=== PATIENT | female | born 1975 | race Caucasian/White ===

== ENCOUNTER 2018-10-15 19:32 | Inpatient (IN) | payer BC, OTHER ==
[~2018-10-15] VITALS: Ht 162.6 cm; Wt 105.0 kg
[2018-10-15] MEDS ORDERED: SODIUM CHLORIDE 0.9% 1,000 ML IV ONE (20:07)
[2018-10-15 20:28] LABS: BASOPHILS # (AUTO) 0.01 x10^3/uL (0-0.1); BASOPHILS % (AUTO) 0 % (0-1); EOSINOPHILS # (AUTO) 0.08 x10^3/uL (0-0.4); EOSINOPHILS % (AUTO) 1 % (1-7); LYMPHOCYTES # (AUTO) 1.66 x10^3/uL (1-3.4); LYMPHOCYTES % (AUTO) 12 % (22-44); MD NO; MEAN CORPUSCULAR HEMOGLOBIN 32.4 pg (27.0-34.8); MEAN CORPUSCULAR VOLUME 95.3 fL (80-100); MEAN PLATELET VOLUME 9.4 fL (7.4-10.4); MONOCYTES # (AUTO) 0.64 x10^3/uL (0.2-0.8); MONOCYTES % (AUTO) 5 % (2-9); NEUTROPHILS # (AUTO) 11.25 x10^3/uL (1.8-6.8); NEUTROPHILS % (AUTO) 83 % (42-75); PLATELET COUNT 179 x10^3/uL (130-400); RED BLOOD COUNT 4.59 x10^6/uL (3.82-5.3); RED CELL DISTRIBUTION WIDTH 13.1 % (9.6-15.2)
[2018-10-15] MEDS ORDERED: MORPHINE SULFATE 4 MG/ML, 1ML IVPush PRN (20:30)
[2018-10-15] MEDS ORDERED: PLEASE ENTER ALLERGIES MC SCH (20:30)
[2018-10-15] MEDS ORDERED: SODIUM CHLORIDE FLUSH 10ML SYR IVF ONE (20:30)
[2018-10-15] MEDS ORDERED: PLEASE ENTER HEIGHT AND WEIGHT MC SCH (20:30)
[2018-10-15 20:40] LABS: ALBUMIN 3.2 g/dL (3.4-5.0); ANION GAP 6 mmol/L (5-15); CALCIUM 9.1 mg/dL (8.5-10.1); CHLORIDE 106 mmol/L (98-107); CREATININE 0.72 mg/dL (0.55-1.02)
[2018-10-15 20:42] LABS: INTERNATIONAL NORMALIZED RATIO 0.96 (0.93-1.1); PROTHROMBIN TIME 10.1 Seconds (9.6-11.5)
--- NOTE | 2018-10-15 21:43 | NUR ---
REPORT GIVEN TO EUGENIO SAEZ.
[2018-10-15 22:26] VITALS: BP 117/81
[2018-10-15] MEDS ORDERED: GABAPENTIN 300 MG CAPSULE PO ONE ×2 (22:30→23:30)
[2018-10-15] MEDS: HYDROmorphone 2 MG/ML, 1ML IVPush PRN (23:00)
[2018-10-15] MEDS ORDERED: POLYETHYLENE GLYCOL 17 GM PACKET PO PRN (23:00)
[2018-10-15] MEDS ORDERED: BISACODYL 10 MG SUPP PR PRN (23:00)
[2018-10-15] MEDS ORDERED: DIAZEPAM 5 MG TABLET PO ONE (23:00)
[2018-10-15] MEDS: GABAPENTIN 300 MG CAPSULE PO SCH (23:00)
[2018-10-15] MEDS ORDERED: OXYcodone IR 5MG TABLET PO PRN (23:00)
[2018-10-15] MEDS ORDERED: LABETALOL 5MG/ML, 20ML IVPush PRN (23:00)
[2018-10-15] MEDS: LACTATED RINGERS 1,000 ML IV SCH (23:37)
[2018-10-15] MEDS: OxyconTIN ER 10 MG TAB.ER PO SCH (23:37)
[2018-10-16] MEDS ORDERED: HYDROmorphone 2 MG/ML, 1ML IVPush PRN (01:00)
[2018-10-16 04:04] VITALS: BP 91/62
[2018-10-16 05:07] LABS: BASOPHILS # (AUTO) 0.11 x10^3/uL (0-0.1); BASOPHILS % (AUTO) 1 % (0-1); EOSINOPHILS # (AUTO) 0.21 x10^3/uL (0-0.4); EOSINOPHILS % (AUTO) 2 % (1-7); LYMPHOCYTES % (AUTO) 19 % (22-44); MD NO; MEAN CORPUSCULAR HEMOGLOBIN 32.2 pg (27.0-34.8); MEAN CORPUSCULAR HGB CONC 33.6 g/dL (32.4-35.8); MEAN CORPUSCULAR VOLUME 95.9 fL (80-100); MEAN PLATELET VOLUME 9.6 fL (7.4-10.4); MONOCYTES # (AUTO) 0.73 x10^3/uL (0.2-0.8); MONOCYTES % (AUTO) 6 % (2-9); NEUTROPHILS # (AUTO) 9.17 x10^3/uL (1.8-6.8); NEUTROPHILS % (AUTO) 73 % (42-75); PLATELET COUNT 156 x10^3/uL (130-400); RED BLOOD COUNT 4.44 x10^6/uL (3.82-5.3); RED CELL DISTRIBUTION WIDTH 13.4 % (9.6-15.2)
[2018-10-16 05:17] LABS: ANION GAP 3 mmol/L (5-15); CALCIUM 8.7 mg/dL (8.5-10.1); CHLORIDE 108 mmol/L (98-107)
[2018-10-16 05:21] LABS: ALANINE AMINOTRANSFERASE 206 U/L (12-78); ALKALINE PHOSPHATASE 71 U/L (45-117); BILIRUBIN,TOTAL 0.3 mg/dL (0.2-1.0); CREATININE 0.93 mg/dL (0.55-1.02); TOTAL PROTEIN 6.4 g/dL (6.4-8.2)
[2018-10-16 05:38] LABS: CULTURE INDICATED? YES; MICROSCOPIC AUTO
[2018-10-16 07:17] VITALS: BP 112/74
[2018-10-16] MEDS: GABAPENTIN 300 MG CAPSULE PO SCH ×3 (07:56→21:13)
[2018-10-16] MEDS: HYDROmorphone 2 MG/ML, 1ML IVPush PRN (08:02)
[2018-10-16] MEDS ORDERED: SENNA/DOCUSATE TABLET PO SCH (09:00)
[2018-10-16] MEDS: LACTATED RINGERS 1,000 ML IV SCH ×2 (10:34→18:17)
[2018-10-16] MEDS: OxyconTIN ER 10 MG TAB.ER PO SCH ×2 (11:29→23:36)
[2018-10-16] MEDS ORDERED: MIDAZOLAM 1 MG/ML, 2ML ONE (12:54)
[2018-10-16] MEDS ORDERED: FENTANYL PF 250 MCG/5ML ONE (12:54)
[2018-10-16] MEDS ORDERED: PROPOFOL 10 MG/ML, 20ML ONE (14:07)
[2018-10-16] MEDS ORDERED: SUCCINYLCHOLINE 20 MG/ML, 10ML ONE (14:07)
[2018-10-16] MEDS ORDERED: DEXAMETHASONE 4 MG/ML, 1ML ONE (14:07)
[2018-10-16] MEDS ORDERED: ROCURONIUM 10 MG/ML,10ML ONE (14:07)
[2018-10-16] MEDS ORDERED: CEFAZOLIN 1,000 MG ONE (14:07)
[2018-10-16] MEDS ORDERED: ONDANSETRON 2MG/ML, 2ML ONE (14:07)
[2018-10-16] MEDS ORDERED: BUPIVACAINE/PF-EPI 0.5% 1:200K INFIL ONE (14:52)
[2018-10-16] MEDS ORDERED: BACITRACIN 50,000 UNIT IRRIG ONE (14:52)
[2018-10-16] MEDS ORDERED: THROMBIN 5,000 UNIT VIAL TP ONE ×2 (14:53→16:13)
[2018-10-16] MEDS ORDERED: PROMETHAZINE 25 MG/ML, 1ML IV PRN (15:00)
[2018-10-16] MEDS ORDERED: LABETALOL 5MG/ML, 20ML IV PRN (15:00)
[2018-10-16] MEDS ORDERED: hydrALAzine 20 MG/ML, 1ML IV PRN (15:00)
[2018-10-16] MEDS ORDERED: FENTANYL PF 100 MCG/2ML IV PRN (15:00)
[2018-10-16] MEDS ORDERED: MEPERIDINE/PF 25MG/0.5ML IVPush PRN (15:00)
[2018-10-16] MEDS ORDERED: OXYcodone 5 MG/5 ML ORAL.SOL UDC PO PRN (15:00)
[2018-10-16] MEDS ORDERED: ONDANSETRON 2MG/ML, 2ML IVPush PRN ×2 (15:00→16:00)
[2018-10-16] MEDS ORDERED: METOCLOPRAMIDE 5 MG/ML, 2ML IV PRN (15:00)
[2018-10-16] MEDS ORDERED: HYDROmorphone 1 MG/ML, 1ML INJ IV PRN (15:00)
[2018-10-16] MEDS ORDERED: KETOROLAC 30 MG/1 ML IV PRN (15:00)
[2018-10-16] MEDS ORDERED: ALBUTEROL SULFATE 2.5 MG/3 ML NPPB PRN (15:00)
[2018-10-16] MEDS ORDERED: BUPIVACAINE LIPOSOME/PF 10ML INFIL ONE (15:06)
[2018-10-16] MEDS ORDERED: BUPIVACAINE LIPOSOME/PF 20ML INFIL ONE (15:10)
[2018-10-16] MEDS ORDERED: FENTANYL PF 100 MCG/2ML ONE (15:12)
[2018-10-16] MEDS ORDERED: BUPIVACAINE/PF 0.25% EPIDPUSH ONE (15:17)
[2018-10-16] MEDS ORDERED: FENTANYL PF 100 MCG/2ML EPIDPUSH ONE (15:18)
[2018-10-16] MEDS ORDERED: CYCLOBENZAPRINE 10 MG TABLET PO PRN (16:00)
[2018-10-16] MEDS ORDERED: morphine SULFATE 10 MG/ML, 1ML IVPush PRN (16:00)
[2018-10-16] MEDS ORDERED: HYDROmorphone 2MG TABLET PO PRN (16:00)
[2018-10-16] MEDS ORDERED: PHARMACY MAY ADJ FOR RENAL FX MC PRN (16:00)
[2018-10-16] MEDS ORDERED: DIPHENHYDRAMINE 50 MG/ML, 1ML IVPush PRN (16:00)
[2018-10-16] MEDS ORDERED: MAGNESIUM HYDROXIDE 8%, 30ML UDC PO PRN (16:00)
[2018-10-16] MEDS ORDERED: METHOCARBAMOL 750 MG TABLET PO PRN (16:00)
[2018-10-16] MEDS ORDERED: PROMETHAZINE 25 MG/ML, 1ML IM PRN (16:00)
[2018-10-16] MEDS ORDERED: BISACODYL 10 MG SUPP PR PRN (16:00)
[2018-10-16] MEDS ORDERED: D5%-0.9% NACL+KCL 20MEQ 1,000 ML IV SCH (16:00)
[2018-10-16] MEDS ORDERED: BUPIVACAINE/PF-EPI 0.5% 1:200K ONE (16:13)
[2018-10-16] MEDS ORDERED: BUPIVACAINE 0.25% ONE (16:13)
[2018-10-16] MEDS ORDERED: BACITRACIN 50,000 UNIT ONE (16:13)
[2018-10-16] MEDS ORDERED: OXYcodone 5 MG/5 ML ORAL.SOL UDC ONE (16:29)
[2018-10-16] MEDS: SENNA/DOCUSATE TABLET PO PRN (18:21)
[2018-10-16 19:05] VITALS: BP 131/79
[2018-10-16] MEDS: OXYcodone IR 5MG TABLET PO PRN (20:40)
[2018-10-16] MEDS: SODIUM CHLORIDE FLUSH 10ML SYR IVF SCH (21:00)
[2018-10-16] MEDS: CEFAZOLIN PMX 1GM/50ML 50 ML IVPB SCH (22:16)
[2018-10-17] VITALS: BP 102/66
[2018-10-17] MEDS ORDERED: IBUPROFEN 600 MG TABLET ONE (00:20)
[2018-10-17] MEDS ORDERED: IBUPROFEN 200 MG TABLET PO PRN (00:30)
[2018-10-17 03:32] VITALS: BP 90/54
[2018-10-17] MEDS: LACTATED RINGERS 1,000 ML IV SCH (05:00)
[2018-10-17 05:20] LABS: BASOPHILS # (AUTO) 0.04 x10^3/uL (0-0.1); BASOPHILS % (AUTO) 0 % (0-1); EOSINOPHILS # (AUTO) 0.25 x10^3/uL (0-0.4); EOSINOPHILS % (AUTO) 2 % (1-7); LYMPHOCYTES # (AUTO) 2.32 x10^3/uL (1-3.4); LYMPHOCYTES % (AUTO) 17 % (22-44); MD NO; MEAN CORPUSCULAR HEMOGLOBIN 32.6 pg (27.0-34.8); MEAN CORPUSCULAR HGB CONC 34.2 g/dL (32.4-35.8); MEAN CORPUSCULAR VOLUME 95.4 fL (80-100); MEAN PLATELET VOLUME 9.8 fL (7.4-10.4); MONOCYTES # (AUTO) 0.61 x10^3/uL (0.2-0.8); MONOCYTES % (AUTO) 4 % (2-9); NEUTROPHILS # (AUTO) 10.61 x10^3/uL (1.8-6.8); NEUTROPHILS % (AUTO) 77 % (42-75); PLATELET COUNT 140 x10^3/uL (130-400); RED BLOOD COUNT 4.03 x10^6/uL (3.82-5.3); RED CELL DISTRIBUTION WIDTH 13.1 % (9.6-15.2)
[2018-10-17] MEDS: CEFAZOLIN PMX 1GM/50ML 50 ML IVPB SCH (06:08)
[2018-10-17] MEDS: ENOXAPARIN 40 MG/0.4 ML SQ SCH (06:09)
[2018-10-17 08:10] VITALS: BP 90/63
[2018-10-17] MEDS: GABAPENTIN 300 MG CAPSULE PO SCH ×3 (08:45→22:51)
[2018-10-17] MEDS: SODIUM CHLORIDE FLUSH 10ML SYR IVF SCH (08:45)
[2018-10-17] MEDS: METHOCARBAMOL 750 MG in DEXTROSE 5% 100 ML IV SCH ×2 (10:30→17:50)
[2018-10-17] MEDS ORDERED: SODIUM CHLORIDE 0.9%, 500ML IVBOLUS ONE (10:30)
[2018-10-17] MEDS ORDERED: DEXAMETHASONE 4 MG/ML, 5ML IV ONE (10:30)
[2018-10-17] MEDS: OxyconTIN ER 10 MG TAB.ER PO SCH (11:30)
[2018-10-17 12:20] VITALS: BP 111/69
[2018-10-17] MEDS: TAMSULOSIN 0.4 MG CAP.ER.24H PO SCH (12:25)
[2018-10-17 13:49] LABS: TROPONIN I < 0.015 ng/mL (0.000-0.045)
[2018-10-17] MEDS ORDERED: D5%-0.9% NACL+KCL 20MEQ 1,000 ML IV SCH (16:00)
[2018-10-17] MEDS: IBUPROFEN 600 MG TABLET PO PRN (16:48)
[2018-10-17] MEDS ORDERED: MAALOX/HYOSCYAMINE/LIDOCAINE 45 ML BTL PO PRN (17:00)
[2018-10-17] MEDS: DEXAMETHASONE 4 MG/ML, 1ML IV SCH (17:49)
[2018-10-17] MEDS: SODIUM CHLORIDE 0.9% 1,000 ML IV SCH (17:50)
[2018-10-17 17:56] LABS: TROPONIN I < 0.015 ng/mL (0.000-0.045)
[2018-10-17 19:07] VITALS: BP 109/73
[2018-10-17] MEDS: AMITRIPTYLINE 25 MG TABLET PO SCH (22:51)
[2018-10-18] VITALS: BP 117/78
[2018-10-18] MEDS: OxyconTIN ER 10 MG TAB.ER PO SCH ×3 (00:01→23:35)
[2018-10-18] MEDS: SODIUM CHLORIDE FLUSH 10ML SYR IVF SCH ×3 (00:01→20:33)
[2018-10-18] MEDS: DEXAMETHASONE 4 MG/ML, 1ML IV SCH ×3 (00:25→11:44)
[2018-10-18] MEDS: METHOCARBAMOL 750 MG in DEXTROSE 5% 100 ML IV SCH ×4 (00:30→18:16)
[2018-10-18] MEDS: SODIUM CHLORIDE 0.9% 1,000 ML IV SCH ×2 (04:11→15:59)
[2018-10-18 04:28] LABS: MICROSCOPIC NOT IND
[2018-10-18 04:29] LABS: CULTURE INDICATED? NO
[2018-10-18 05:27] LABS: MEAN CORPUSCULAR HEMOGLOBIN 31.5 pg (27.0-34.8); MEAN CORPUSCULAR HGB CONC 33.2 g/dL (32.4-35.8); MEAN CORPUSCULAR VOLUME 94.9 fL (80-100); MEAN PLATELET VOLUME 9.4 fL (7.4-10.4); PLATELET COUNT 159 x10^3/uL (130-400); RED BLOOD COUNT 4.23 x10^6/uL (3.82-5.3); RED CELL DISTRIBUTION WIDTH 13.2 % (9.6-15.2)
[2018-10-18 05:35] LABS: ANION GAP 5 mmol/L (5-15); CALCIUM 8.8 mg/dL (8.5-10.1); CHLORIDE 112 mmol/L (98-107)
[2018-10-18 05:40] LABS: ALANINE AMINOTRANSFERASE 141 U/L (12-78); ALKALINE PHOSPHATASE 72 U/L (45-117); BILIRUBIN,TOTAL 0.6 mg/dL (0.2-1.0); CREATININE 0.68 mg/dL (0.55-1.02); TOTAL PROTEIN 6.8 g/dL (6.4-8.2)
[2018-10-18 06:04] LABS: BASOPHILS # (AUTO) 0.01 x10^3/uL (0-0.1); BASOPHILS % (AUTO) 0 % (0-1); EOSINOPHILS % (AUTO) 0 % (1-7); LYMPHOCYTES # (AUTO) 0.68 x10^3/uL (1-3.4); LYMPHOCYTES % (AUTO) 4 % (22-44); MD SCAN; MONOCYTES # (AUTO) 0.14 x10^3/uL (0.2-0.8); MONOCYTES % (AUTO) 1 % (2-9); NEUTROPHILS # (AUTO) 15.11 x10^3/uL (1.8-6.8); NEUTROPHILS % (AUTO) 95 % (42-75)
[2018-10-18] MEDS: ENOXAPARIN 40 MG/0.4 ML SQ SCH (06:22)
[2018-10-18 06:58] VITALS: BP 100/65
[2018-10-18] MEDS: GABAPENTIN 300 MG CAPSULE PO SCH ×3 (08:30→20:32)
[2018-10-18] MEDS: TAMSULOSIN 0.4 MG CAP.ER.24H PO SCH (08:30)
[2018-10-18] MEDS ORDERED: FLUDROCORTISONE 0.1 MG TABLET PO SCH (09:00)
[2018-10-18 13:28] VITALS: BP 100/68
[2018-10-18] MEDS: IBUPROFEN 600 MG TABLET PO PRN (15:59)
[2018-10-18] MEDS: AMITRIPTYLINE 25 MG TABLET PO SCH (20:32)
[2018-10-18 20:50] VITALS: BP 110/75
[2018-10-19 01:40] VITALS: BP 100/55
[2018-10-19] MEDS: METHOCARBAMOL 750 MG in DEXTROSE 5% 100 ML IV SCH (01:47)
[2018-10-19] MEDS: OXYcodone IR 5MG TABLET PO PRN (04:36)
[2018-10-19] MEDS: ENOXAPARIN 40 MG/0.4 ML SQ SCH (05:42)
[2018-10-19 06:05] LABS: BASOPHILS # (AUTO) 0.05 x10^3/uL (0-0.1); BASOPHILS % (AUTO) 0 % (0-1); EOSINOPHILS # (AUTO) 0.04 x10^3/uL (0-0.4); EOSINOPHILS % (AUTO) 0 % (1-7); LYMPHOCYTES # (AUTO) 2.02 x10^3/uL (1-3.4); LYMPHOCYTES % (AUTO) 14 % (22-44); MD NO; MEAN CORPUSCULAR HEMOGLOBIN 32.3 pg (27.0-34.8); MEAN CORPUSCULAR HGB CONC 33.7 g/dL (32.4-35.8); MEAN CORPUSCULAR VOLUME 95.8 fL (80-100); MEAN PLATELET VOLUME 9.7 fL (7.4-10.4); MONOCYTES # (AUTO) 0.67 x10^3/uL (0.2-0.8); MONOCYTES % (AUTO) 5 % (2-9); NEUTROPHILS # (AUTO) 11.72 x10^3/uL (1.8-6.8); NEUTROPHILS % (AUTO) 81 % (42-75); PLATELET COUNT 152 x10^3/uL (130-400); RED BLOOD COUNT 3.58 x10^6/uL (3.82-5.3); RED CELL DISTRIBUTION WIDTH 13.5 % (9.6-15.2)
[2018-10-19 06:17] LABS: ALANINE AMINOTRANSFERASE 99 U/L (12-78); ALBUMIN 2.6 g/dL (3.4-5.0); ANION GAP 4 mmol/L (5-15); CALCIUM 8.4 mg/dL (8.5-10.1); CHLORIDE 114 mmol/L (98-107); CREATININE 0.61 mg/dL (0.55-1.02)
[2018-10-19 06:19] LABS: ALKALINE PHOSPHATASE 58 U/L (45-117); BILIRUBIN,TOTAL 0.3 mg/dL (0.2-1.0); TOTAL PROTEIN 5.7 g/dL (6.4-8.2)
[2018-10-19 06:35] VITALS: BP 99/66
[2018-10-19] MEDS: SODIUM CHLORIDE FLUSH 10ML SYR IVF SCH ×2 (09:00→21:01)
[2018-10-19] MEDS: SODIUM CHLORIDE 0.9% 1,000 ML IV SCH ×2 (09:54→22:00)
[2018-10-19] MEDS: FLUDROCORTISONE 0.1 MG TABLET PO SCH (09:55)
[2018-10-19] MEDS: GABAPENTIN 300 MG CAPSULE PO SCH ×3 (09:55→21:00)
[2018-10-19] MEDS: TAMSULOSIN 0.4 MG CAP.ER.24H PO SCH (09:55)
[2018-10-19 12:18] VITALS: BP 97/62
[2018-10-19] MEDS: SENNA/DOCUSATE TABLET PO PRN (17:15)
[2018-10-19 19:31] VITALS: BP 98/64
[2018-10-19] MEDS: OxyconTIN ER 10 MG TAB.ER PO PRN (21:00)
[2018-10-19] MEDS: AMITRIPTYLINE 25 MG TABLET PO SCH (21:01)
[2018-10-20 01:12] VITALS: BP 102/67
[2018-10-20] MEDS: IBUPROFEN 600 MG TABLET PO PRN ×2 (01:27→08:36)
[2018-10-20] MEDS: OXYcodone IR 5MG TABLET PO PRN (03:33)
[2018-10-20 05:20] LABS: BASOPHILS # (AUTO) 0.02 x10^3/uL (0-0.1); BASOPHILS % (AUTO) 0 % (0-1); EOSINOPHILS # (AUTO) 0.21 x10^3/uL (0-0.4); EOSINOPHILS % (AUTO) 2 % (1-7); LYMPHOCYTES % (AUTO) 27 % (22-44); MD NO; MEAN CORPUSCULAR HEMOGLOBIN 32.6 pg (27.0-34.8); MEAN CORPUSCULAR HGB CONC 33.7 g/dL (32.4-35.8); MEAN CORPUSCULAR VOLUME 96.6 fL (80-100); MONOCYTES # (AUTO) 0.55 x10^3/uL (0.2-0.8); MONOCYTES % (AUTO) 6 % (2-9); NEUTROPHILS # (AUTO) 5.75 x10^3/uL (1.8-6.8); NEUTROPHILS % (AUTO) 64 % (42-75); PLATELET COUNT 145 x10^3/uL (130-400); RED BLOOD COUNT 3.44 x10^6/uL (3.82-5.3)
[2018-10-20] MEDS: ENOXAPARIN 40 MG/0.4 ML SQ SCH (06:15)
[2018-10-20 06:49] VITALS: BP 103/69
[2018-10-20] MEDS: GABAPENTIN 300 MG CAPSULE PO SCH (08:31)
[2018-10-20] MEDS: FLUDROCORTISONE 0.1 MG TABLET PO SCH (08:31)
[2018-10-20] MEDS: TAMSULOSIN 0.4 MG CAP.ER.24H PO SCH (08:31)
[2018-10-20] MEDS: SODIUM CHLORIDE FLUSH 10ML SYR IVF SCH (08:32)
[2018-10-20] MEDS: SENNA/DOCUSATE TABLET PO PRN (08:36)
[2018-10-20] MEDS ORDERED: CYCL-259 PO (11:52)
[2018-10-20] MEDS ORDERED: IBUP-1222 PO (11:52)
[2018-10-20] MEDS ORDERED: GABA300C10 PO (11:52)
[2018-10-20] MEDS ORDERED: FLUD0.1T PO (11:52)
[2018-10-20] MEDS ORDERED: Tamsulosin PO (11:52)
[2018-10-20] MEDS ORDERED: AMIT25TA PO (11:52)
[2018-10-20 12:26] VITALS: BP 109/73
[2018-10-20] MEDS: OxyconTIN ER 10 MG TAB.ER PO PRN (13:36)
[2018-10-20] MEDS ORDERED: OMEPRAZOLE 20 MG CAPSULE.DR PO SCH (16:00)
== END 2018-10-20 15:28 | DRG 519 ==
LOC: ED 20:56 → EDIP 21:00 → 3NE 21:47 → 4NOR 10-16 16:55 → 4EST 10-17 14:18
PROVIDERS: ADMIT Family Medicine; ATTEND Family Medicine
PROC: 01NB0ZZ Release Lumbar Nerve, Open Approach (ICD-10-PCS; 2018-10-16)
PROC: 01NR0ZZ Release Sacral Nerve, Open Approach (ICD-10-PCS; 2018-10-16)
PROC: 4A11X4G Monitoring of Peripheral Nervous Electrical Activity, Intraoperative, External Approach (ICD-10-PCS; 2018-10-16)
PROC: 0SB40ZZ Excision of Lumbosacral Disc, Open Approach (ICD-10-PCS; principal; 2018-10-16 14:30)
PROC: 0T9B70Z Drainage of Bladder with Drainage Device, Via Natural or Artificial Opening (ICD-10-PCS; 2018-10-18)
DX: M51.17 Intervertebral disc disorders with radiculopathy, lumbosacral region (principal); E27.40 Unspecified adrenocortical insufficiency; I47.1 Supraventricular tachycardia; D72.829 Elevated white blood cell count, unspecified; E66.01 Morbid (severe) obesity due to excess calories; Z68.39 Body mass index [BMI] 39.0-39.9, adult; K59.00 Constipation, unspecified; M21.379 Foot drop, unspecified foot; T40.605A Adverse effect of unspecified narcotics, initial encounter; K59.03 Drug induced constipation; R33.9 Retention of urine, unspecified; S96.912A Strain of unspecified muscle and tendon at ankle and foot level, left foot, initial encounter; W18.30XA Fall on same level, unspecified, initial encounter; Y92.89 Other specified places as the place of occurrence of the external cause; Y93.01 Activity, walking, marching and hiking; Y99.8 Other external cause status; Z79.899 Other long term (current) drug therapy; Z90.710 Acquired absence of both cervix and uterus; Z91.81 History of falling
CPT/HCPCS: 36415; 71045; 72100; 80048; 80053; 81001; 81003; 82040; 82533; 83605; 83735; 84484; 85025; 85610; 85730; 87040; 87086; 93005; 93306; 93970; 99285; C9290; G0378; J0690; J1100; J1170; J1650; J2250; J2405; J2704; J3010; J3490; J0330; J2800; J3480; J7030; J7040; J7120